=== PATIENT | male | born 2000 | race Caucasian/White ===

== ENCOUNTER 2021-11-10 11:29 | Emergency (ER) | payer BC ==
[~2021-11-10] VITALS: Ht 172.7 cm; Wt 122.7 kg
[2021-11-10] MEDS ORDERED: TESSALON PERLE200 MG PO (12:37)
[2021-11-10 13:00] VITALS: BP 129/70; PULSE 98; TEMP 97.9
== END 2021-11-10 13:09 ==
LOC: COL.ER 11:29
DX: J20.9 Acute bronchitis, unspecified (principal); Z87.891 Personal history of nicotine dependence
CPT/HCPCS: J1885; J8540